=== PATIENT | female | born 1955 ===

== ENCOUNTER 2023-08-01 11:24 | Outpatient (REF) | payer SELFPAY ==
--- NOTE | 2023-08-01 12:46 | MHC.AU.HA3 ---
Hearing Instrument Follow-Up- Binaural Right Ear: Make, Model, Color, Serial Number: Oticon Janice 2 [employer] Liaison Officer Repair Warranty: 06/11/2023 Community Liaison Officer Loss and Damage Warranty: 06/11/2023 Battery Size: Rechargeable [place]/Dome/CShell/SlimTip: Type of Wax Guard: prowax minifit Dispensed By: unknown Left Ear: Make, Model, Color, Serial Number: Oticon Janice 2 [employer]iaison Officer Repair Warranty: 06/11/2023 Community Liaison Officer Loss and Damage Warranty: 06/11/2023 Battery Size: Rechargeable Type of Wax Guard: prowax minifit Dispensed By: unknown Follow-Up Summary: Giana is an existing hearing aid user, reporting she purchased her hearing aids elsewhere a few years ago but never wore them consistently. She would like to start wearing them again but the batteries are no longer charging. Replaced both, read out settings, decreased to exp lvl 2 as she gets used to them again. Discussed returning for updated audiogram and further adjustment. Recommendations: Recommendations: Return for updated audiogram and hearing aid adjustment. Diagnosis Code(s): Primary Diagnosis: H90.3 Bilateral Sensorineural Hearing Loss Signature: Provider: Ada Wong, CCC-A
== END 2023-08-01 11:25 | disposition home or self-care (01) ==
LOC: HO.HAP 11:24
PROVIDERS: Visit Provider Internal Medicine
DX: Z46.1 Encounter for fitting and adjustment of hearing aid (principal); H90.3 Sensorineural hearing loss, bilateral
CPT/HCPCS: 92700

== ENCOUNTER 2023-10-11 09:24 | Outpatient (REF) | payer MEDICARE, OTHER, SELFPAY | END 2023-10-11 09:25 | disposition home or self-care (01) | LOC: HO.SH 09:24 | PROVIDERS: Visit Provider Internal Medicine | DX: Z01.118 Encounter for examination of ears and hearing with other abnormal findings (principal); H90.3 Sensorineural hearing loss, bilateral | CPT/HCPCS: 92557 ==